=== PATIENT | male | born 1945 | race Caucasian/White ===

== ENCOUNTER 2017-09-13 09:10 | Inpatient (IN) ==
[2017-09-13] MEDS ORDERED: ALBUTEROL/IPRATROPIUM 3 ML NEB RESP TX STA (09:53)
[2017-09-13 10:44] LABS: Basophils % 0.4 % (0.0-0.8); Eosinophils % 0.2 % (0.00-10.9); Hemoglobin 15.6 GM/DL (14.0-18.0); Immature Granulocytes % 0.4 %; Immature Granulocytes Absolute 0.02 #; Lymphocytes # 0.8 10*3/uL (1.4-4.0); Lymphocytes % 15.4 % (21.2-54.2); Mean Corpuscular HGB Conc 32.5 GM/DL (32-36); Mean Corpuscular Hemoglobin 28 PG (27-34); Mean Corpuscular Volume 87.3 FL (87-102); Mean Platelet Volume 8.9 FL (9.6-12.0); Monocytes # 0.5 10*3/uL (0.11-0.8); Monocytes % 8.7 % (1.7-12.7); Neutrophils % 74.9 % (38.7-73.9); Platelet Count 209 T/CUMM (130-400); Red Cell Distribution Width 13.6 % (9.3-17.3); White Blood Count 5.4 T/CUMM (4-12)
[2017-09-13 11:06] LABS: Alanine Aminotransferase 29 U/L (16-61); Albumin 3.7 G/DL (3.4-5.0); Alkaline Phosphatase 128 U/L (45-117); Aspartate Amino Transferase 21 U/L (0-37); Blood Urea Nitrogen 17 MG/DL (7-18); Calcium 9.4 MG/DL (8.5-10.1); Glucose 83 MG/DL (74-106); Magnesium 2.3 MG/DL (1.8-2.4); Osmolality,Calculated 283.1 MOS/KG (273-304); Sodium 142 MMOL/L (136-145); Total Protein 6.8 G/DL (6.4-8.3); Troponin I Only < 0.015 NG/ML (0.00-0.045)
[2017-09-13] MEDS ORDERED: ONDANSETRON 4 MG/2 ML VIAL IV PRN (12:29)
[2017-09-13] MEDS: ALBUTEROL/IPRATROPIUM 3 ML NEB RESP TX SCH ×2 (12:44→19:52)
[2017-09-13] MEDS ORDERED: methylPREDNISolone SOD SUC 125 MG/2 ML VIAL IV ONE (16:10)
[2017-09-13] MEDS ORDERED: BISACODYL 5 MG TABLET PO PRN (17:02)
[2017-09-13] MEDS: CEFEPIME 1,000 MG in SYRINGE 1 EACH IV SCH (18:38)
[2017-09-13] MEDS: DORNASE ALFA 2.5 MG/2.5 ML VIAL RESP TX SCH (19:52)
[2017-09-13] MEDS: DILTIAZEM CD 120 MG CAPSULE PO SCH (22:02)
[2017-09-13] MEDS: ATORVASTATIN 20 MG TABLET PO SCH (22:03)
[2017-09-13] MEDS: ACETAMINOPHEN 325 MG TABLET PO PRN (22:03)
[2017-09-14] MEDS: ALBUTEROL/IPRATROPIUM 3 ML NEB RESP TX SCH ×4 (00:33→20:40)
[2017-09-14] MEDS: CEFEPIME 1,000 MG in SYRINGE 1 EACH IV SCH ×2 (05:47→18:12)
[2017-09-14] MEDS: DORNASE ALFA 2.5 MG/2.5 ML VIAL RESP TX SCH ×2 (07:17→20:52)
[2017-09-14] MEDS ORDERED: predniSONE 20 MG TABLET PO SCH (09:00)
[2017-09-14] MEDS: methylPREDNISolone SOD SUC 125 MG/2 ML VIAL IV SCH ×2 (09:29→20:47)
[2017-09-14] MEDS: LEVOFLOXACIN INJ 500 MG in PREMIX 1 EACH IV SCH (09:29)
[2017-09-14] MEDS: CYANOCOBALAMIN 100 MCG TABLET PO SCH (09:30)
[2017-09-14] MEDS: DILTIAZEM CD 120 MG CAPSULE PO SCH ×2 (09:30→20:47)
[2017-09-14] MEDS: MULTIVITAMIN (CENTRUM) TABLET PO SCH (09:30)
[2017-09-14] MEDS: RIVAROXABAN 20 MG TABLET PO SCH (09:30)
[2017-09-14] MEDS: THEOPHYLLINE ER (24 HR) 300 MG CAPSULE PO SCH (09:30)
[2017-09-14] MEDS: ASCORBIC ACID 500 MG TABLET PO SCH (09:30)
[2017-09-14] MEDS: ASPIRIN EC 81 MG TABLET PO SCH (09:30)
[2017-09-14] MEDS: PANTOPRAZOLE 40 MG TABLET PO SCH (09:30)
[2017-09-14] MEDS: FLUTICASONE/SALMETEROL 250-50 DISKUS 14 DOSE INH SCH (09:58)
[2017-09-14] MEDS: ROFLUMILAST 500 MCG TABLET PO SCH (09:58)
[2017-09-14] MEDS: ACETAMINOPHEN 325 MG TABLET PO PRN (18:13)
[2017-09-14] MEDS: ATORVASTATIN 20 MG TABLET PO SCH (20:48)
[2017-09-15] MEDS: ALBUTEROL/IPRATROPIUM 3 ML NEB RESP TX SCH ×4 (01:59→20:08)
[2017-09-15] MEDS: CEFEPIME 1,000 MG in SYRINGE 1 EACH IV SCH ×2 (05:34→17:03)
[2017-09-15 06:29] LABS: Basophils % 0.2 % (0.0-0.8); Hematocrit 45.8 VOL% (42.0-52.0); Hemoglobin 14.6 GM/DL (14.0-18.0); Immature Granulocytes % 0.5 %; Immature Granulocytes Absolute 0.03 #; Lymphocytes # 0.3 10*3/uL (1.4-4.0); Lymphocytes % 5.2 % (21.2-54.2); Mean Corpuscular HGB Conc 31.9 GM/DL (32-36); Mean Corpuscular Hemoglobin 28 PG (27-34); Mean Corpuscular Volume 88.9 FL (87-102); Monocytes # 0.1 10*3/uL (0.11-0.8); Neutrophils # 5.5 10*3/uL (1.4-7.4); Neutrophils % 93.1 % (38.7-73.9); Platelet Count 240 T/CUMM (130-400); Red Blood Count 5.15 MC/CUMM (3.8-5.5); Red Cell Distribution Width 13.4 % (9.3-17.3); White Blood Count 5.9 T/CUMM (4-12)
[2017-09-15 06:53] LABS: Calcium 8.4 MG/DL (8.5-10.1); Magnesium 2.4 MG/DL (1.8-2.4); Osmolality,Calculated 288.1 MOS/KG (273-304); Potassium 4.1 MMOL/L (3.5-5.1)
[2017-09-15 06:58] LABS: Giant Platelets Few; Hypochromasia 1+; Lymphocytes 5 % (20-55); Platelet Estimate Adequate; Segmented Neutrophils 94 % (50-85); Total Cells Counted 100
[2017-09-15] MEDS: DORNASE ALFA 2.5 MG/2.5 ML VIAL RESP TX SCH ×2 (07:35→20:08)
[2017-09-15] MEDS: methylPREDNISolone SOD SUC 125 MG/2 ML VIAL IV SCH ×2 (09:04→20:29)
[2017-09-15] MEDS: ASPIRIN EC 81 MG TABLET PO SCH (09:05)
[2017-09-15] MEDS: LEVOFLOXACIN INJ 500 MG in PREMIX 1 EACH IV SCH (09:05)
[2017-09-15] MEDS: CYANOCOBALAMIN 100 MCG TABLET PO SCH (09:05)
[2017-09-15] MEDS: DILTIAZEM CD 120 MG CAPSULE PO SCH ×2 (09:05→20:29)
[2017-09-15] MEDS: ROFLUMILAST 500 MCG TABLET PO SCH (09:05)
[2017-09-15] MEDS: THEOPHYLLINE ER (24 HR) 300 MG CAPSULE PO SCH (09:05)
[2017-09-15] MEDS: MULTIVITAMIN (CENTRUM) TABLET PO SCH (09:05)
[2017-09-15] MEDS: FLUTICASONE/SALMETEROL 250-50 DISKUS 14 DOSE INH SCH (09:05)
[2017-09-15] MEDS: ASCORBIC ACID 500 MG TABLET PO SCH (09:05)
[2017-09-15] MEDS: PANTOPRAZOLE 40 MG TABLET PO SCH (09:05)
[2017-09-15] MEDS: RIVAROXABAN 20 MG TABLET PO SCH (09:05)
[2017-09-15] MEDS: ACETAMINOPHEN 325 MG TABLET PO PRN (15:37)
[2017-09-15] MEDS: ATORVASTATIN 20 MG TABLET PO SCH (20:29)
[2017-09-15] MEDS ORDERED: MAGNESIUM SULF RIDER 2 GM in PREMIX 1 EACH IV ONE (21:03)
[2017-09-15] MEDS ORDERED: TERBUTALINE 1 MG/1 ML VIAL SUBCUT ONE (21:25)
[2017-09-15] MEDS ORDERED: methylPREDNISolone SOD SUC 125 MG/2 ML VIAL IV SCH (21:26)
[2017-09-15 21:50] LABS: ABG Base Excess 6.9 MMOL/L (-2.5-2.5); ABG HCO3 30.7 MMOL/L (20-26); ABG Oxygen Saturation 97.6 % (95-100); ABG PH 7.352 (7.35-7.45); ABG TCO2 30.4 MMOL/L (23-27); Allen Test Positive; Pt O2 Delivery Device BIPAP
[2017-09-15 22:22] LABS: Basophils % 0.1 % (0.0-0.8); Hematocrit 46.3 VOL% (42.0-52.0); Immature Granulocytes % 1.4 %; Immature Granulocytes Absolute 0.12 #; Lymphocytes # 0.3 10*3/uL (1.4-4.0); Lymphocytes % 3.5 % (21.2-54.2); Mean Corpuscular HGB Conc 32.4 GM/DL (32-36); Mean Corpuscular Hemoglobin 29 PG (27-34); Mean Platelet Volume 8.9 FL (9.6-12.0); Monocytes # 0.3 10*3/uL (0.11-0.8); Monocytes % 3.6 % (1.7-12.7); Neutrophils % 91.4 % (38.7-73.9); Platelet Count 256 T/CUMM (130-400); Red Blood Count 5.26 MC/CUMM (3.8-5.5); Red Cell Distribution Width 13.5 % (9.3-17.3); White Blood Count 8.8 T/CUMM (4-12)
[2017-09-15 22:42] LABS: Lymphocytes 7 % (20-55); Platelet Estimate Normal; Segmented Neutrophils 93 % (50-85); Total Cells Counted 100
[2017-09-15 22:47] LABS: Calcium 8.7 MG/DL (8.5-10.1); Magnesium 2.4 MG/DL (1.8-2.4); Osmolality,Calculated 289.1 MOS/KG (273-304); Potassium 4.3 MMOL/L (3.5-5.1)
[2017-09-15 22:52] LABS: Troponin I Only < 0.015 NG/ML (0.00-0.045)
[2017-09-16] MEDS: LEVALBUTEROL 1.25 MG/3 ML NEB RESP TX SCH ×4 (00:43→19:27)
[2017-09-16] MEDS: IPRATROPIUM 500 MCG/2.5 ML NEB RESP TX SCH ×4 (00:43→19:26)
[2017-09-16] MEDS: ACETAMINOPHEN 325 MG TABLET PO PRN ×3 (04:52→20:53)
[2017-09-16] MEDS: CEFEPIME 1,000 MG in SYRINGE 1 EACH IV SCH ×2 (05:22→18:39)
[2017-09-16] MEDS ORDERED: MIDAZOLAM 2 MG/2 ML VIAL IV ONE (06:42)
[2017-09-16] MEDS ORDERED: LIDOCAINE 1% 20 ML VIAL MISC INJ ONE (06:42)
[2017-09-16] MEDS ORDERED: LIDOCAINE 2% 20 ML VIAL RESP TX ONE (06:42)
[2017-09-16] MEDS: DORNASE ALFA 2.5 MG/2.5 ML VIAL RESP TX SCH ×2 (07:25→19:16)
[2017-09-16] MEDS: ALBUTEROL 2.5 MG/3 ML NEB RESP TX PRN (07:29)
[2017-09-16] MEDS ORDERED: TERBUTALINE 1 MG/1 ML VIAL SUBCUT ONE (08:01)
[2017-09-16] MEDS: MULTIVITAMIN (CENTRUM) TABLET PO SCH (10:29)
[2017-09-16] MEDS: ASPIRIN EC 81 MG TABLET PO SCH (10:29)
[2017-09-16] MEDS: DILTIAZEM CD 120 MG CAPSULE PO SCH (10:29)
[2017-09-16] MEDS: ROFLUMILAST 500 MCG TABLET PO SCH (10:29)
[2017-09-16] MEDS: PANTOPRAZOLE 40 MG TABLET PO SCH (10:30)
[2017-09-16] MEDS: ASCORBIC ACID 500 MG TABLET PO SCH ×2 (10:30→20:51)
[2017-09-16] MEDS: THEOPHYLLINE ER (24 HR) 300 MG CAPSULE PO SCH (10:30)
[2017-09-16] MEDS: CYANOCOBALAMIN 100 MCG TABLET PO SCH (10:30)
[2017-09-16] MEDS: LEVOFLOXACIN INJ 500 MG in PREMIX 1 EACH IV SCH (10:31)
[2017-09-16] MEDS: FLUTICASONE/SALMETEROL 250-50 DISKUS 14 DOSE INH SCH (10:33)
[2017-09-16] MEDS: RIVAROXABAN 20 MG TABLET PO SCH (10:42)
[2017-09-16] MEDS: methylPREDNISolone SOD SUC 125 MG/2 ML VIAL IV SCH ×3 (10:42→18:38)
[2017-09-16 13:13] LABS: Basophils % 0.1 % (0.0-0.8); Hematocrit 48.5 VOL% (42.0-52.0); Hemoglobin 15.6 GM/DL (14.0-18.0); Immature Granulocytes % 0.6 %; Immature Granulocytes Absolute 0.08 #; Lymphocytes # 0.3 10*3/uL (1.4-4.0); Mean Corpuscular HGB Conc 32.2 GM/DL (32-36); Mean Corpuscular Hemoglobin 28 PG (27-34); Mean Corpuscular Volume 88.3 FL (87-102); Mean Platelet Volume 8.9 FL (9.6-12.0); Monocytes # 0.6 10*3/uL (0.11-0.8); Monocytes % 4.4 % (1.7-12.7); Neutrophils # 12.8 10*3/uL (1.4-7.4); Neutrophils % 92.9 % (38.7-73.9); Platelet Count 266 T/CUMM (130-400); Red Blood Count 5.49 MC/CUMM (3.8-5.5); Red Cell Distribution Width 13.5 % (9.3-17.3); White Blood Count 13.7 T/CUMM (4-12)
[2017-09-16 13:47] LABS: Lymphocytes 2 % (20-55); Platelet Estimate Normal; Segmented Neutrophils 96 % (50-85); Total Cells Counted 100
[2017-09-16] MEDS ORDERED: DILTIAZEM CD 120 MG CAPSULE PO ONE (14:32)
[2017-09-16] MEDS: DILTIAZEM CD 180 MG CAPSULE PO SCH ×2 (15:00→20:52)
[2017-09-16 16:07] LABS: Magnesium 2.6 MG/DL (1.8-2.4); Osmolality,Calculated 288.1 MOS/KG (273-304); Potassium 3.9 MMOL/L (3.5-5.1)
[2017-09-16] MEDS: ATORVASTATIN 20 MG TABLET PO SCH (20:51)
[2017-09-17] MEDS: LEVALBUTEROL 1.25 MG/3 ML NEB RESP TX SCH ×4 (00:42→20:05)
[2017-09-17] MEDS: IPRATROPIUM 500 MCG/2.5 ML NEB RESP TX SCH ×4 (00:42→20:02)
[2017-09-17] MEDS: methylPREDNISolone SOD SUC 125 MG/2 ML VIAL IV SCH ×4 (00:52→19:56)
[2017-09-17] MEDS: ALBUTEROL 2.5 MG/3 ML NEB RESP TX PRN (03:09)
[2017-09-17 04:30] LABS: Basophils % 0.1 % (0.0-0.8); Hematocrit 48.2 VOL% (42.0-52.0); Hemoglobin 15.1 GM/DL (14.0-18.0); Immature Granulocytes % 0.6 %; Immature Granulocytes Absolute 0.08 #; Lymphocytes # 0.3 10*3/uL (1.4-4.0); Lymphocytes % 2.2 % (21.2-54.2); Mean Corpuscular HGB Conc 31.3 GM/DL (32-36); Mean Corpuscular Hemoglobin 28 PG (27-34); Mean Corpuscular Volume 88.9 FL (87-102); Mean Platelet Volume 9.1 FL (9.6-12.0); Monocytes # 0.3 10*3/uL (0.11-0.8); Monocytes % 2.3 % (1.7-12.7); Neutrophils # 11.9 10*3/uL (1.4-7.4); Neutrophils % 94.8 % (38.7-73.9); Platelet Count 261 T/CUMM (130-400); Red Blood Count 5.42 MC/CUMM (3.8-5.5); Red Cell Distribution Width 13.5 % (9.3-17.3); White Blood Count 12.5 T/CUMM (4-12)
[2017-09-17 05:05] LABS: Calcium 8.9 MG/DL (8.5-10.1); Magnesium 2.5 MG/DL (1.8-2.4)
[2017-09-17 05:13] LABS: Segmented Neutrophils 93 % (50-85); Total Cells Counted 100
[2017-09-17 05:14] LABS: Anisocytosis 1+; Band Neutrophils 2 % (0-10); Lymphocytes 2 % (20-55); Macrocytosis 1+; Ovalocytes Few; Platelet Estimate Normal
[2017-09-17] MEDS: CEFEPIME 1,000 MG in SYRINGE 1 EACH IV SCH ×2 (06:29→19:56)
[2017-09-17] MEDS ORDERED: TERBUTALINE 1 MG/1 ML VIAL SUBCUT PRN (07:19)
[2017-09-17 08:32] LABS: ABG Base Excess 11.4 MMOL/L (-2.5-2.5); ABG HCO3 39.3 MMOL/L (20-26); ABG Oxygen Saturation 96.3 % (95-100); ABG PCO2 64.8 MM HG (35-48); ABG PH 7.401 (7.35-7.45); ABG PO2 82.5 MM HG (80-95); ABG TCO2 41.3 MMOL/L (23-27)
[2017-09-17] MEDS: ASCORBIC ACID 500 MG TABLET PO SCH ×2 (09:10→21:04)
[2017-09-17] MEDS: MULTIVITAMIN (CENTRUM) TABLET PO SCH (09:10)
[2017-09-17] MEDS: THEOPHYLLINE ER (24 HR) 300 MG CAPSULE PO SCH (09:10)
[2017-09-17] MEDS: CYANOCOBALAMIN 100 MCG TABLET PO SCH (09:10)
[2017-09-17] MEDS: PANTOPRAZOLE 40 MG TABLET PO SCH (09:11)
[2017-09-17] MEDS: DILTIAZEM CD 180 MG CAPSULE PO SCH ×2 (09:11→21:03)
[2017-09-17] MEDS: ROFLUMILAST 500 MCG TABLET PO SCH (09:11)
[2017-09-17] MEDS: RIVAROXABAN 20 MG TABLET PO SCH (09:11)
[2017-09-17] MEDS: ASPIRIN EC 81 MG TABLET PO SCH (09:11)
[2017-09-17] MEDS: ACETAMINOPHEN 325 MG TABLET PO PRN (13:48)
[2017-09-17] MEDS: LEVOFLOXACIN INJ 500 MG in PREMIX 1 EACH IV SCH (13:49)
[2017-09-17] MEDS: FLUTICASONE/SALMETEROL 250-50 DISKUS 14 DOSE INH SCH (13:50)
[2017-09-17] MEDS ORDERED: DOCUSATE SODIUM 100 MG CAPSULE PO PRN (19:47)
[2017-09-17] MEDS: ATORVASTATIN 20 MG TABLET PO SCH (21:04)
[2017-09-17] MEDS: AZELASTINE NASAL 137 MCG/SPRAY 30 ML BOTTLE BOTH NARES SCH (21:06)
[2017-09-18] MEDS: IPRATROPIUM 500 MCG/2.5 ML NEB RESP TX SCH ×4 (01:35→20:07)
[2017-09-18] MEDS: LEVALBUTEROL 1.25 MG/3 ML NEB RESP TX SCH ×4 (01:35→20:07)
[2017-09-18] MEDS: methylPREDNISolone SOD SUC 125 MG/2 ML VIAL IV SCH ×4 (02:47→19:06)
[2017-09-18] MEDS: ACETAMINOPHEN 325 MG TABLET PO PRN (04:28)
[2017-09-18] MEDS: CEFEPIME 1,000 MG in SYRINGE 1 EACH IV SCH ×2 (07:01→18:34)
[2017-09-18] MEDS: ROFLUMILAST 500 MCG TABLET PO SCH (08:42)
[2017-09-18] MEDS: MULTIVITAMIN (CENTRUM) TABLET PO SCH (08:43)
[2017-09-18] MEDS: PANTOPRAZOLE 40 MG TABLET PO SCH (08:43)
[2017-09-18] MEDS: CYANOCOBALAMIN 100 MCG TABLET PO SCH (08:43)
[2017-09-18] MEDS: RIVAROXABAN 20 MG TABLET PO SCH (08:43)
[2017-09-18] MEDS: ASPIRIN EC 81 MG TABLET PO SCH (08:43)
[2017-09-18] MEDS: ASCORBIC ACID 500 MG TABLET PO SCH ×2 (08:43→21:04)
[2017-09-18] MEDS: THEOPHYLLINE ER (24 HR) 300 MG CAPSULE PO SCH (08:43)
[2017-09-18] MEDS: FLUTICASONE/SALMETEROL 250-50 DISKUS 14 DOSE INH SCH (08:44)
[2017-09-18] MEDS: DILTIAZEM CD 180 MG CAPSULE PO SCH ×2 (08:44→21:04)
[2017-09-18] MEDS: LEVOFLOXACIN INJ 500 MG in PREMIX 1 EACH IV SCH (08:44)
[2017-09-18] MEDS: AZELASTINE NASAL 137 MCG/SPRAY 30 ML BOTTLE BOTH NARES SCH ×2 (08:55→21:04)
[2017-09-18] MEDS: ATORVASTATIN 20 MG TABLET PO SCH (21:04)
[2017-09-19] MEDS: IPRATROPIUM 500 MCG/2.5 ML NEB RESP TX SCH ×4 (00:27→21:15)
[2017-09-19] MEDS: LEVALBUTEROL 1.25 MG/3 ML NEB RESP TX SCH ×4 (00:31→20:32)
[2017-09-19] MEDS: methylPREDNISolone SOD SUC 125 MG/2 ML VIAL IV SCH ×2 (01:12→08:04)
[2017-09-19] MEDS: CEFEPIME 1,000 MG in SYRINGE 1 EACH IV SCH ×2 (05:06→17:42)
[2017-09-19] MEDS: RIVAROXABAN 20 MG TABLET PO SCH (08:04)
[2017-09-19] MEDS: LEVOFLOXACIN INJ 500 MG in PREMIX 1 EACH IV SCH (08:41)
[2017-09-19] MEDS: FLUTICASONE/SALMETEROL 250-50 DISKUS 14 DOSE INH SCH (08:43)
[2017-09-19] MEDS: MULTIVITAMIN (CENTRUM) TABLET PO SCH (08:44)
[2017-09-19] MEDS: AZELASTINE NASAL 137 MCG/SPRAY 30 ML BOTTLE BOTH NARES SCH ×2 (08:44→21:01)
[2017-09-19] MEDS: PANTOPRAZOLE 40 MG TABLET PO SCH (08:45)
[2017-09-19] MEDS: CYANOCOBALAMIN 100 MCG TABLET PO SCH (08:45)
[2017-09-19] MEDS: ASCORBIC ACID 500 MG TABLET PO SCH ×2 (08:45→21:00)
[2017-09-19] MEDS: THEOPHYLLINE ER (24 HR) 300 MG CAPSULE PO SCH (08:45)
[2017-09-19] MEDS: ASPIRIN EC 81 MG TABLET PO SCH (08:45)
[2017-09-19] MEDS: DILTIAZEM CD 180 MG CAPSULE PO SCH ×2 (08:46→21:01)
[2017-09-19] MEDS: ROFLUMILAST 500 MCG TABLET PO SCH (10:06)
[2017-09-19] MEDS: ACETAMINOPHEN 325 MG TABLET PO PRN (10:09)
[2017-09-19] MEDS: methylPREDNISolone SOD SUC 40 MG/1 ML VIAL IV SCH ×3 (10:56→22:40)
[2017-09-19] MEDS: ATORVASTATIN 20 MG TABLET PO SCH (21:01)
[2017-09-20] MEDS: LEVALBUTEROL 1.25 MG/3 ML NEB RESP TX SCH ×4 (00:35→20:00)
[2017-09-20] MEDS: IPRATROPIUM 500 MCG/2.5 ML NEB RESP TX SCH ×4 (00:35→20:00)
[2017-09-20] MEDS: ACETAMINOPHEN 325 MG TABLET PO PRN ×2 (02:09→11:00)
[2017-09-20] MEDS: methylPREDNISolone SOD SUC 40 MG/1 ML VIAL IV SCH ×2 (03:55→16:42)
[2017-09-20] MEDS: CEFEPIME 1,000 MG in SYRINGE 1 EACH IV SCH ×2 (06:32→17:36)
[2017-09-20] MEDS: ROFLUMILAST 500 MCG TABLET PO SCH (08:57)
[2017-09-20] MEDS: MULTIVITAMIN (CENTRUM) TABLET PO SCH (08:57)
[2017-09-20] MEDS: CYANOCOBALAMIN 100 MCG TABLET PO SCH (08:57)
[2017-09-20] MEDS: RIVAROXABAN 20 MG TABLET PO SCH (08:57)
[2017-09-20] MEDS: ASPIRIN EC 81 MG TABLET PO SCH (08:57)
[2017-09-20] MEDS: THEOPHYLLINE ER (24 HR) 300 MG CAPSULE PO SCH (08:57)
[2017-09-20] MEDS: ASCORBIC ACID 500 MG TABLET PO SCH ×2 (08:58→20:20)
[2017-09-20] MEDS: DILTIAZEM CD 180 MG CAPSULE PO SCH ×2 (08:58→20:19)
[2017-09-20] MEDS: PANTOPRAZOLE 40 MG TABLET PO SCH (08:58)
[2017-09-20] MEDS: AZELASTINE NASAL 137 MCG/SPRAY 30 ML BOTTLE BOTH NARES SCH ×2 (08:58→20:17)
[2017-09-20] MEDS: FLUTICASONE/SALMETEROL 250-50 DISKUS 14 DOSE INH SCH (08:59)
[2017-09-20] MEDS: LEVOFLOXACIN INJ 500 MG in PREMIX 1 EACH IV SCH (09:00)
[2017-09-20 10:56] LABS: Basophils % 0.1 % (0.0-0.8); Hemoglobin 15.5 GM/DL (14.0-18.0); Immature Granulocytes Absolute 0.13 #; Lymphocytes # 0.2 10*3/uL (1.4-4.0); Lymphocytes % 1.6 % (21.2-54.2); Mean Corpuscular HGB Conc 31.6 GM/DL (32-36); Mean Corpuscular Hemoglobin 28 PG (27-34); Mean Corpuscular Volume 89.6 FL (87-102); Mean Platelet Volume 9.4 FL (9.6-12.0); Monocytes # 0.7 10*3/uL (0.11-0.8); Neutrophils # 12.1 10*3/uL (1.4-7.4); Neutrophils % 92.3 % (38.7-73.9); Platelet Count 220 T/CUMM (130-400); Red Blood Count 5.47 MC/CUMM (3.8-5.5); Red Cell Distribution Width 13.5 % (9.3-17.3); White Blood Count 13.1 T/CUMM (4-12)
[2017-09-20 11:04] LABS: Calcium 8.6 MG/DL (8.5-10.1); Osmolality,Calculated 298.6 MOS/KG (273-304); Potassium 4.1 MMOL/L (3.5-5.1)
[2017-09-20 11:20] LABS: Band Neutrophils 1 % (0-10); Hypochromasia 1+; Lymphocytes 1 % (20-55); Microcytosis 1+; Segmented Neutrophils 92 % (50-85); Total Cells Counted 100
[2017-09-20 11:22] LABS: Platelet Estimate Normal
[2017-09-20] MEDS: ATORVASTATIN 20 MG TABLET PO SCH (20:20)
[2017-09-21] MEDS: IPRATROPIUM 500 MCG/2.5 ML NEB RESP TX SCH ×5 (00:05→19:15)
[2017-09-21] MEDS: LEVALBUTEROL 1.25 MG/3 ML NEB RESP TX SCH ×4 (00:20→19:15)
[2017-09-21] MEDS: methylPREDNISolone SOD SUC 40 MG/1 ML VIAL IV SCH ×2 (05:13→17:05)
[2017-09-21] MEDS: CEFEPIME 1,000 MG in SYRINGE 1 EACH IV SCH ×2 (05:29→17:08)
[2017-09-21] MEDS: THEOPHYLLINE ER (24 HR) 300 MG CAPSULE PO SCH (09:20)
[2017-09-21] MEDS: DILTIAZEM CD 180 MG CAPSULE PO SCH ×2 (09:20→20:34)
[2017-09-21] MEDS: CYANOCOBALAMIN 100 MCG TABLET PO SCH (09:20)
[2017-09-21] MEDS: ACETAMINOPHEN 325 MG TABLET PO PRN (09:20)
[2017-09-21] MEDS: ROFLUMILAST 500 MCG TABLET PO SCH (09:21)
[2017-09-21] MEDS: MULTIVITAMIN (CENTRUM) TABLET PO SCH (09:21)
[2017-09-21] MEDS: ASCORBIC ACID 500 MG TABLET PO SCH ×2 (09:21→20:38)
[2017-09-21] MEDS: PANTOPRAZOLE 40 MG TABLET PO SCH (09:21)
[2017-09-21] MEDS: LEVOFLOXACIN INJ 500 MG in PREMIX 1 EACH IV SCH (09:21)
[2017-09-21] MEDS: ASPIRIN EC 81 MG TABLET PO SCH (09:21)
[2017-09-21] MEDS: RIVAROXABAN 20 MG TABLET PO SCH (09:21)
[2017-09-21] MEDS: AZELASTINE NASAL 137 MCG/SPRAY 30 ML BOTTLE BOTH NARES SCH ×2 (09:22→20:34)
[2017-09-21] MEDS: FLUTICASONE/SALMETEROL 250-50 DISKUS 14 DOSE INH SCH (09:23)
[2017-09-21] MEDS: ATORVASTATIN 20 MG TABLET PO SCH (20:38)
[2017-09-22] MEDS: LEVALBUTEROL 1.25 MG/3 ML NEB RESP TX SCH ×2 (01:18→07:24)
[2017-09-22] MEDS: methylPREDNISolone SOD SUC 40 MG/1 ML VIAL IV SCH (05:04)
[2017-09-22] MEDS: CEFEPIME 1,000 MG in SYRINGE 1 EACH IV SCH (05:04)
[2017-09-22 06:22] LABS: Basophils % 0.1 % (0.0-0.8); Hemoglobin 15.2 GM/DL (14.0-18.0); Immature Granulocytes % 1.8 %; Immature Granulocytes Absolute 0.26 #; Lymphocytes # 0.3 10*3/uL (1.4-4.0); Lymphocytes % 2.3 % (21.2-54.2); Mean Corpuscular HGB Conc 31.7 GM/DL (32-36); Mean Corpuscular Hemoglobin 28 PG (27-34); Mean Corpuscular Volume 89.1 FL (87-102); Mean Platelet Volume 9.5 FL (9.6-12.0); Monocytes # 0.7 10*3/uL (0.11-0.8); Monocytes % 4.6 % (1.7-12.7); Neutrophils % 91.2 % (38.7-73.9); Platelet Count 210 T/CUMM (130-400); Red Blood Count 5.39 MC/CUMM (3.8-5.5); Red Cell Distribution Width 13.8 % (9.3-17.3); White Blood Count 14.2 T/CUMM (4-12)
[2017-09-22 06:48] LABS: Hypochromasia 2+; Lymphocytes 2 % (20-55); Platelet Estimate Normal; Segmented Neutrophils 94 % (50-85); Total Cells Counted 100
[2017-09-22 06:49] LABS: Microcytosis Slight
[2017-09-22 06:50] LABS: Calcium 8.3 MG/DL (8.5-10.1); Magnesium 2.4 MG/DL (1.8-2.4); Osmolality,Calculated 293.6 MOS/KG (273-304); Potassium 4.6 MMOL/L (3.5-5.1)
[2017-09-22] MEDS: IPRATROPIUM 500 MCG/2.5 ML NEB RESP TX SCH (07:24)
[2017-09-22] MEDS ORDERED: LEVOFLOXACIN 500 MG TABLET PO SCH (09:00)
[2017-09-22] MEDS ORDERED: predniSONE 20 MG TABLET PO SCH (09:00)
[2017-09-22] MEDS: PANTOPRAZOLE 40 MG TABLET PO SCH (10:06)
[2017-09-22] MEDS: RIVAROXABAN 20 MG TABLET PO SCH (10:06)
[2017-09-22] MEDS: MULTIVITAMIN (CENTRUM) TABLET PO SCH (10:08)
[2017-09-22] MEDS: DILTIAZEM CD 180 MG CAPSULE PO SCH (10:08)
[2017-09-22] MEDS: ASCORBIC ACID 500 MG TABLET PO SCH (10:09)
[2017-09-22] MEDS: CYANOCOBALAMIN 100 MCG TABLET PO SCH (10:09)
[2017-09-22] MEDS: ROFLUMILAST 500 MCG TABLET PO SCH (10:10)
[2017-09-22] MEDS: THEOPHYLLINE ER (24 HR) 300 MG CAPSULE PO SCH (10:10)
[2017-09-22] MEDS: ASPIRIN EC 81 MG TABLET PO SCH (10:10)
[2017-09-22] MEDS: AZELASTINE NASAL 137 MCG/SPRAY 30 ML BOTTLE BOTH NARES SCH (10:11)
[2017-09-22 11:07] VITALS: BP 135/75
[2017-09-22] MEDS: FLUTICASONE/SALMETEROL 250-50 DISKUS 14 DOSE INH SCH (14:00)
== END 2017-09-22 14:15 | disposition home or self-care (01) | DRG 166 ==
LOC: EDBD → EDUNIT# → N.ED 09:10 → N.EDINP 09:10 → N.5E 12:08 → N.CVR 09-15 21:09 → N.ICU 09-16 12:45 → N.3E 09-18 10:32
PROVIDERS: ADMIT Family Medicine; ATTEND Family Medicine

== ENCOUNTER 2017-10-27 14:51 | Inpatient (IN) ==
[2017-10-27] MEDS ORDERED: ACETAMINOPHEN 325 MG TABLET PO PRN (16:37)
[2017-10-27] MEDS ORDERED: ONDANSETRON 4 MG/2 ML VIAL IV PRN (16:38)
[2017-10-27] MEDS ORDERED: MAGNESIUM HYDROXIDE SUSP 30 ML UDCUP PO PRN (16:39)
[2017-10-27] MEDS ORDERED: LOPERAMIDE 2 MG CAPSULE PO PRN (16:39)
[2017-10-27] MEDS ORDERED: guaiFENesin 200 MG/10 ML UDCUP PO PRN (16:40)
[2017-10-27] MEDS ORDERED: ALUMINUM/MAGNES/SIMETH MAX STR 30 ML UDCUP PO PRN (16:40)
[2017-10-27] MEDS ORDERED: ALBUTEROL 2.5 MG/3 ML NEB RESP TX PRN (16:44)
[2017-10-27 16:53] LABS: ABG Base Excess 6.2 MMOL/L (-2.5-2.5); ABG HCO3 29.9 MMOL/L (20-26); ABG Oxygen Saturation 92.5 % (95-100); ABG PH 7.416 (7.35-7.45); ABG PO2 63.4 MM HG (80-95); ABG TCO2 27.9 MMOL/L (23-27)
[2017-10-27] MEDS: LEVOFLOXACIN INJ 500 MG in PREMIX 1 EACH IV SCH (17:10)
[2017-10-27] MEDS: CEFEPIME 1,000 MG in SYRINGE 1 EACH IV SCH (17:11)
[2017-10-27] MEDS: SODIUM CHLORIDE 0.9% 1,000 ML IV SCH (17:11)
[2017-10-27 17:16] LABS: Basophils % 0.3 % (0.0-0.8); Eosinophils # 0.1 10*3/uL (0.0-0.87); Eosinophils % 0.7 % (0.00-10.9); Hematocrit 42.1 VOL% (42.0-52.0); Hemoglobin 13.9 GM/DL (14.0-18.0); Immature Granulocytes % 0.9 %; Immature Granulocytes Absolute 0.12 #; Lymphocytes # 0.8 10*3/uL (1.4-4.0); Lymphocytes % 5.9 % (21.2-54.2); Mean Corpuscular Hemoglobin 29 PG (27-34); Mean Corpuscular Volume 87.3 FL (87-102); Mean Platelet Volume 8.8 FL (9.6-12.0); Monocytes % 7.6 % (1.7-12.7); Neutrophils # 11.2 10*3/uL (1.4-7.4); Neutrophils % 84.6 % (38.7-73.9); Platelet Count 312 T/CUMM (130-400); Red Blood Count 4.82 MC/CUMM (3.8-5.5); Red Cell Distribution Width 15.6 % (9.3-17.3); White Blood Count 13.3 T/CUMM (4-12)
[2017-10-27] MEDS: methylPREDNISolone SOD SUC 40 MG/1 ML VIAL IV SCH (17:19)
[2017-10-27 17:44] LABS: Albumin 2.9 G/DL (3.4-5.0); Bilirubin,Total 0.9 MG/DL (0.2-1.0); Calcium 8.7 MG/DL (8.5-10.1); Osmolality,Calculated 278.4 MOS/KG (273-304); Potassium 4.1 MMOL/L (3.5-5.1); Total Protein 6.4 G/DL (6.4-8.3)
[2017-10-27 18:25] LABS: Sedimentation Rate-Westergren 75 MM/HR (0-20)
[2017-10-27] MEDS: ALBUTEROL/IPRATROPIUM 3 ML NEB RESP TX SCH ×2 (19:16→23:45)
[2017-10-27] MEDS: IPRATROPIUM 500 MCG/2.5 ML NEB RESP TX SCH (19:16)
[2017-10-27] MEDS: AZELASTINE NASAL 137 MCG/SPRAY 30 ML BOTTLE BOTH NARES SCH (21:04)
[2017-10-27 21:44] LABS: Apearance,Urine CLEAR (Clear); Bilirubin,Urine Negative (Negative); Blood, Urine Negative (Negative); Glucose,Urine (UA) Negative (Negative); Ketones,Urine 5 mg/dL (Negative); Mucus,Urine Many /LPF (Occasional); Nitrite,Urine Negative (Negative); Protein,Urine 30 MG/DL; RBC,Urine 1 /HPF (0-4); Squamous Epithelial Cell,Urine Occasional /HPF (0-10); Urine Color Amber (Yellow); Urine Specific Gravity 1.027 (1.001-1.035); WBC,Urine 2 /HPF (0-6)
[2017-10-28] MEDS: methylPREDNISolone SOD SUC 40 MG/1 ML VIAL IV SCH ×3 (01:57→17:54)
[2017-10-28] MEDS: CEFEPIME 1,000 MG in SYRINGE 1 EACH IV SCH ×2 (04:47→21:20)
[2017-10-28] MEDS: IPRATROPIUM 500 MCG/2.5 ML NEB RESP TX SCH (06:54)
[2017-10-28] MEDS: ALBUTEROL/IPRATROPIUM 3 ML NEB RESP TX SCH ×3 (06:54→20:29)
[2017-10-28] MEDS: MULTIVITAMIN (CENTRUM) TABLET PO SCH (08:03)
[2017-10-28] MEDS: ASPIRIN CHEW 81 MG TABLET PO SCH (08:03)
[2017-10-28] MEDS: DILTIAZEM CD 120 MG CAPSULE PO SCH (08:03)
[2017-10-28] MEDS: PANTOPRAZOLE 40 MG TABLET PO SCH (08:03)
[2017-10-28] MEDS: CYANOCOBALAMIN 100 MCG TABLET PO SCH (08:03)
[2017-10-28] MEDS: THEOPHYLLINE ER 300 MG TABLET PO SCH (08:03)
[2017-10-28] MEDS: ASCORBIC ACID 500 MG TABLET PO SCH (08:03)
[2017-10-28] MEDS: ATORVASTATIN 20 MG TABLET PO SCH (08:03)
[2017-10-28] MEDS: ROFLUMILAST 500 MCG TABLET PO SCH (08:04)
[2017-10-28] MEDS: FLUTICASONE/SALMETEROL 250-50 DISKUS 14 DOSE INH SCH (08:04)
[2017-10-28] MEDS: AZELASTINE NASAL 137 MCG/SPRAY 30 ML BOTTLE BOTH NARES SCH ×2 (08:04→21:20)
[2017-10-28] MEDS: SODIUM CHLORIDE 0.9% 1,000 ML IV SCH (17:30)
[2017-10-28] MEDS: LEVOFLOXACIN INJ 500 MG in PREMIX 1 EACH IV SCH (21:20)
[2017-10-29] MEDS: ALBUTEROL/IPRATROPIUM 3 ML NEB RESP TX SCH ×4 (01:34→19:24)
[2017-10-29] MEDS: methylPREDNISolone SOD SUC 40 MG/1 ML VIAL IV SCH ×3 (02:05→16:29)
[2017-10-29] MEDS: ASPIRIN CHEW 81 MG TABLET PO SCH (09:26)
[2017-10-29] MEDS: MULTIVITAMIN (CENTRUM) TABLET PO SCH (09:26)
[2017-10-29] MEDS: ROFLUMILAST 500 MCG TABLET PO SCH (09:26)
[2017-10-29] MEDS: ASCORBIC ACID 500 MG TABLET PO SCH (09:26)
[2017-10-29] MEDS: DILTIAZEM CD 120 MG CAPSULE PO SCH (09:26)
[2017-10-29] MEDS: PANTOPRAZOLE 40 MG TABLET PO SCH (09:26)
[2017-10-29] MEDS: ATORVASTATIN 20 MG TABLET PO SCH (09:26)
[2017-10-29] MEDS: CYANOCOBALAMIN 100 MCG TABLET PO SCH (09:26)
[2017-10-29] MEDS: THEOPHYLLINE ER 300 MG TABLET PO SCH (09:27)
[2017-10-29] MEDS: AZELASTINE NASAL 137 MCG/SPRAY 30 ML BOTTLE BOTH NARES SCH ×2 (09:27→22:05)
[2017-10-29] MEDS: FLUTICASONE/SALMETEROL 250-50 DISKUS 14 DOSE INH SCH (09:27)
[2017-10-29] MEDS: CEFEPIME 1,000 MG in SYRINGE 1 EACH IV SCH ×2 (09:27→21:55)
[2017-10-29] MEDS: SODIUM CHLORIDE 0.9% 1,000 ML IV SCH (14:21)
[2017-10-29] MEDS: LEVOFLOXACIN INJ 500 MG in PREMIX 1 EACH IV SCH (22:07)
[2017-10-30] MEDS: ALBUTEROL/IPRATROPIUM 3 ML NEB RESP TX SCH ×4 (01:26→19:21)
[2017-10-30] MEDS: methylPREDNISolone SOD SUC 40 MG/1 ML VIAL IV SCH ×3 (02:00→16:17)
[2017-10-30] MEDS: AZELASTINE NASAL 137 MCG/SPRAY 30 ML BOTTLE BOTH NARES SCH ×2 (08:31→21:48)
[2017-10-30] MEDS: FLUTICASONE/SALMETEROL 250-50 DISKUS 14 DOSE INH SCH (08:31)
[2017-10-30] MEDS: CEFEPIME 1,000 MG in SYRINGE 1 EACH IV SCH ×2 (08:31→21:40)
[2017-10-30] MEDS: MULTIVITAMIN (CENTRUM) TABLET PO SCH (08:32)
[2017-10-30] MEDS: DILTIAZEM CD 120 MG CAPSULE PO SCH (08:32)
[2017-10-30] MEDS: CYANOCOBALAMIN 100 MCG TABLET PO SCH (08:32)
[2017-10-30] MEDS: PANTOPRAZOLE 40 MG TABLET PO SCH (08:32)
[2017-10-30] MEDS: ROFLUMILAST 500 MCG TABLET PO SCH (08:32)
[2017-10-30] MEDS: ATORVASTATIN 20 MG TABLET PO SCH (08:32)
[2017-10-30] MEDS: THEOPHYLLINE ER 300 MG TABLET PO SCH (08:32)
[2017-10-30] MEDS: ASCORBIC ACID 500 MG TABLET PO SCH (08:32)
[2017-10-30] MEDS: ASPIRIN CHEW 81 MG TABLET PO SCH (08:33)
[2017-10-30] MEDS: BISACODYL 5 MG TABLET PO PRN (08:33)
[2017-10-30] MEDS: SODIUM CHLORIDE 0.9% 1,000 ML IV SCH (09:53)
[2017-10-30] MEDS: LEVOFLOXACIN INJ 500 MG in PREMIX 1 EACH IV SCH (21:48)
[2017-10-31] MEDS: ALBUTEROL/IPRATROPIUM 3 ML NEB RESP TX SCH ×5 (00:24→23:51)
[2017-10-31] MEDS: methylPREDNISolone SOD SUC 40 MG/1 ML VIAL IV SCH ×3 (01:19→17:03)
[2017-10-31] MEDS: AZELASTINE NASAL 137 MCG/SPRAY 30 ML BOTTLE BOTH NARES SCH ×2 (08:12→22:27)
[2017-10-31] MEDS: CEFEPIME 1,000 MG in SYRINGE 1 EACH IV SCH ×2 (08:12→21:35)
[2017-10-31] MEDS: FLUTICASONE/SALMETEROL 250-50 DISKUS 14 DOSE INH SCH (08:12)
[2017-10-31] MEDS: ASCORBIC ACID 500 MG TABLET PO SCH (08:13)
[2017-10-31] MEDS: ROFLUMILAST 500 MCG TABLET PO SCH (08:13)
[2017-10-31] MEDS: THEOPHYLLINE ER 300 MG TABLET PO SCH (08:13)
[2017-10-31] MEDS: MULTIVITAMIN (CENTRUM) TABLET PO SCH (08:13)
[2017-10-31] MEDS: DILTIAZEM CD 120 MG CAPSULE PO SCH (08:13)
[2017-10-31] MEDS: ATORVASTATIN 20 MG TABLET PO SCH (08:13)
[2017-10-31] MEDS: CYANOCOBALAMIN 100 MCG TABLET PO SCH (08:13)
[2017-10-31] MEDS: PANTOPRAZOLE 40 MG TABLET PO SCH (08:14)
[2017-10-31] MEDS: ASPIRIN CHEW 81 MG TABLET PO SCH (08:14)
[2017-10-31] MEDS: NYSTATIN 500,000 UNIT/5 ML UDCUP SWISH/SWAL SCH ×2 (17:03→21:40)
[2017-10-31] MEDS: BISACODYL 5 MG TABLET PO PRN (17:10)
[2017-10-31] MEDS: LEVOFLOXACIN INJ 500 MG in PREMIX 1 EACH IV SCH (21:40)
[2017-11-01] MEDS: methylPREDNISolone SOD SUC 40 MG/1 ML VIAL IV SCH ×2 (01:55→09:07)
[2017-11-01] MEDS: ALBUTEROL/IPRATROPIUM 3 ML NEB RESP TX SCH ×2 (07:15→12:58)
[2017-11-01] MEDS: NYSTATIN 500,000 UNIT/5 ML UDCUP SWISH/SWAL SCH ×2 (09:07→14:27)
[2017-11-01] MEDS: PANTOPRAZOLE 40 MG TABLET PO SCH (09:07)
[2017-11-01] MEDS: DILTIAZEM CD 120 MG CAPSULE PO SCH (09:07)
[2017-11-01] MEDS: MULTIVITAMIN (CENTRUM) TABLET PO SCH (09:07)
[2017-11-01] MEDS: CYANOCOBALAMIN 100 MCG TABLET PO SCH (09:08)
[2017-11-01] MEDS: ROFLUMILAST 500 MCG TABLET PO SCH (09:08)
[2017-11-01] MEDS: THEOPHYLLINE ER 300 MG TABLET PO SCH (09:08)
[2017-11-01] MEDS: ASPIRIN CHEW 81 MG TABLET PO SCH (09:09)
[2017-11-01] MEDS: AZELASTINE NASAL 137 MCG/SPRAY 30 ML BOTTLE BOTH NARES SCH (09:09)
[2017-11-01] MEDS: FLUTICASONE/SALMETEROL 250-50 DISKUS 14 DOSE INH SCH (09:09)
[2017-11-01] MEDS: ATORVASTATIN 20 MG TABLET PO SCH (09:09)
[2017-11-01] MEDS: CEFEPIME 1,000 MG in SYRINGE 1 EACH IV SCH (09:47)
[2017-11-01] MEDS: ASCORBIC ACID 500 MG TABLET PO SCH (09:49)
[2017-11-01 19:18] VITALS: BP 140/74
[2017-11-02] MEDS ORDERED: predniSONE 20 MG TABLET PO SCH (09:00)
[2017-11-02] MEDS ORDERED: LEVOFLOXACIN 500 MG TABLET PO SCH (21:00)
== END 2017-11-01 17:45 | disposition home or self-care (01) | DRG 193 ==
LOC: N.2E 15:18
PROVIDERS: ADMIT Internal Medicine Pulmonary Disease; ATTEND Internal Medicine Pulmonary Disease

== ENCOUNTER 2018-09-12 15:05 | Inpatient (IN) ==
[2018-09-12] MEDS ORDERED: ALBUTEROL 2.5 MG/3 ML NEB RESP TX STA (17:03)
[2018-09-12] MEDS ORDERED: SODIUM CHLORIDE 0.9% 1,000 ML IV STA (17:04)
[2018-09-12] MEDS ORDERED: LIDOCAINE 1%/EPI INJ 20 ML VIAL ONE (17:19)
[2018-09-12] MEDS ORDERED: ONDANSETRON 4 MG/2 ML VIAL IV PRN (19:51)
[2018-09-12] MEDS ORDERED: IBUPROFEN 600 MG TABLET PO PRN (19:51)
[2018-09-12 21:34] LABS: Basophils % 0.2 % (0.0-0.8); Eosinophils % 0.1 % (0.00-10.9); Hematocrit 40.5 VOL% (42.0-52.0); Hemoglobin 13.1 GM/DL (14.0-18.0); Immature Granulocytes % 0.4 %; Immature Granulocytes Absolute 0.08 #; Lymphocytes # 0.5 10*3/uL (1.4-4.0); Lymphocytes % 2.9 % (21.2-54.2); Mean Corpuscular HGB Conc 32.3 GM/DL (32-36); Mean Corpuscular Hemoglobin 29 PG (27-34); Mean Platelet Volume 9.1 FL (9.6-12.0); Monocytes # 1.3 10*3/uL (0.11-0.8); Monocytes % 7.5 % (1.7-12.7); Neutrophils # 15.9 10*3/uL (1.4-7.4); Neutrophils % 88.9 % (38.7-73.9); Platelet Count 195 T/CUMM (130-400); Red Cell Distribution Width 13.4 % (9.3-17.3); White Blood Count 17.9 T/CUMM (4-12)
[2018-09-12 21:58] LABS: Calcium 8.5 MG/DL (8.5-10.1); Osmolality,Calculated 278.5 MOS/KG (273-304); Potassium 3.4 MMOL/L (3.5-5.1)
[2018-09-12 22:48] LABS: Lymphocytes 3 % (20-55); Segmented Neutrophils 92 % (50-85); Total Cells Counted 100
[2018-09-12 22:49] LABS: Anisocytosis Slight
[2018-09-12 22:50] LABS: Microcytosis Slight; Ovalocytes Slight; Platelet Estimate Normal
[2018-09-12] MEDS: DOCUSATE SODIUM 100 MG CAPSULE PO SCH (23:29)
[2018-09-12] MEDS: ACETAMINOPHEN 325 MG TABLET PO PRN (23:59)
[2018-09-13] MEDS: ACETAMINOPHEN 325 MG TABLET PO PRN ×2 (08:30→18:48)
[2018-09-13] MEDS ORDERED: PANTOPRAZOLE 40 MG TABLET PO SCH (09:00)
[2018-09-13] MEDS: DOCUSATE SODIUM 100 MG CAPSULE PO SCH ×2 (09:34→21:51)
[2018-09-13] MEDS ORDERED: ALBUTEROL 2.5 MG/3 ML NEB RESP TX PRN (10:10)
[2018-09-13] MEDS: acetaZOLAMIDE 250 MG TABLET PO SCH (13:05)
[2018-09-13] MEDS: BUMETANIDE 1 MG TABLET PO SCH (13:06)
[2018-09-13] MEDS: ROFLUMILAST 500 MCG TABLET PO SCH (13:06)
[2018-09-13] MEDS: DILTIAZEM CD 120 MG CAPSULE PO SCH ×2 (13:06→21:51)
[2018-09-13] MEDS: THEOPHYLLINE ER (24 HR) 300 MG CAPSULE PO SCH (13:08)
[2018-09-13] MEDS: IPRATROPIUM 500 MCG/2.5 ML NEB RESP TX SCH ×2 (16:02→19:46)
[2018-09-13] MEDS: CYANOCOBALAMIN 500 MCG TABLET PO SCH (16:45)
[2018-09-13] MEDS: MULTIVITAMIN (CENTRUM) TABLET PO SCH (16:45)
[2018-09-13] MEDS: ASPIRIN EC 81 MG TABLET PO SCH (16:45)
[2018-09-13] MEDS: PANTOPRAZOLE 40 MG TABLET PO SCH (16:45)
[2018-09-13] MEDS: POTASSIUM CHLORIDE 20 MEQ TABLET PO SCH (16:45)
[2018-09-13] MEDS: ASCORBIC ACID 500 MG TABLET PO SCH (16:46)
[2018-09-13] MEDS: FLUTICASONE/SALMETEROL 250-50 DISKUS 14 DOSE INH SCH ×2 (18:49→21:51)
[2018-09-13] MEDS: ATORVASTATIN 20 MG TABLET PO SCH (21:51)
[2018-09-14] MEDS: LACTATED RINGERS 1,000 ML IV SCH ×2 (00:20→12:48)
[2018-09-14] MEDS: IPRATROPIUM 500 MCG/2.5 ML NEB RESP TX SCH ×4 (07:06→20:59)
[2018-09-14 07:10] LABS: Basophils # 0.1 10*3/uL (0.0-0.2); Basophils % 0.6 % (0.0-0.8); Eosinophils # 0.2 10*3/uL (0.0-0.87); Eosinophils % 2.2 % (0.00-10.9); Hematocrit 40.2 VOL% (42.0-52.0); Hemoglobin 12.7 GM/DL (14.0-18.0); Immature Granulocytes % 0.5 %; Immature Granulocytes Absolute 0.05 #; Lymphocytes # 0.7 10*3/uL (1.4-4.0); Lymphocytes % 7.3 % (21.2-54.2); Mean Corpuscular HGB Conc 31.6 GM/DL (32-36); Mean Corpuscular Hemoglobin 28 PG (27-34); Mean Corpuscular Volume 89.7 FL (87-102); Mean Platelet Volume 9.1 FL (9.6-12.0); Monocytes # 0.8 10*3/uL (0.11-0.8); Neutrophils % 81.4 % (38.7-73.9); Platelet Count 159 T/CUMM (130-400); Red Blood Count 4.48 MC/CUMM (3.8-5.5); Red Cell Distribution Width 13.3 % (9.3-17.3); White Blood Count 9.8 T/CUMM (4-12)
[2018-09-14 07:44] LABS: Calcium 8.2 MG/DL (8.5-10.1); Osmolality,Calculated 283.8 MOS/KG (273-304); Potassium 3.2 MMOL/L (3.5-5.1); Total Protein 6.4 G/DL (6.4-8.3)
[2018-09-14] MEDS ORDERED: POTASSIUM CHLORIDE RIDER 20 MEQ in PREMIX 1 EACH IV PRN (08:47)
[2018-09-14] MEDS ORDERED: POTASSIUM CHLORIDE RIDER 10 MEQ in PREMIX 1 EACH IV ONE (08:51)
[2018-09-14] MEDS: DILTIAZEM CD 120 MG CAPSULE PO SCH ×2 (09:09→20:53)
[2018-09-14] MEDS: ACETAMINOPHEN 325 MG TABLET PO PRN (09:34)
[2018-09-14] MEDS: FLUTICASONE/SALMETEROL 250-50 DISKUS 14 DOSE INH SCH ×2 (10:20→20:53)
[2018-09-14] MEDS: ASPIRIN EC 81 MG TABLET PO SCH (10:20)
[2018-09-14] MEDS: POTASSIUM CHLORIDE 20 MEQ TABLET PO SCH (10:21)
[2018-09-14] MEDS: PANTOPRAZOLE 40 MG TABLET PO SCH (10:21)
[2018-09-14] MEDS: DOCUSATE SODIUM 100 MG CAPSULE PO SCH ×2 (10:21→20:48)
[2018-09-14] MEDS: acetaZOLAMIDE 250 MG TABLET PO SCH (10:21)
[2018-09-14] MEDS: BUMETANIDE 1 MG TABLET PO SCH (10:21)
[2018-09-14] MEDS: ROFLUMILAST 500 MCG TABLET PO SCH (10:21)
[2018-09-14] MEDS: MULTIVITAMIN (CENTRUM) TABLET PO SCH (10:21)
[2018-09-14] MEDS: THEOPHYLLINE ER (24 HR) 300 MG CAPSULE PO SCH (10:22)
[2018-09-14] MEDS: CYANOCOBALAMIN 500 MCG TABLET PO SCH (10:22)
[2018-09-14] MEDS: ASCORBIC ACID 500 MG TABLET PO SCH (10:22)
[2018-09-14] MEDS ORDERED: MAGNESIUM HYDROXIDE SUSP 30 ML UDCUP PO PRN (12:20)
[2018-09-14] MEDS ORDERED: diphenhydrAMINE CAP 25 MG CAPSULE PO PRN (12:20)
[2018-09-14] MEDS ORDERED: MORPHINE 4 MG/1 ML VIAL IV PRN ×2 (12:20)
[2018-09-14] MEDS ORDERED: oxyCODONE IR 5 MG TABLET PO PRN ×2 (12:20)
[2018-09-14] MEDS ORDERED: ceFAZolin 1,000 MG VIAL ONE (12:59)
[2018-09-14] MEDS ORDERED: POTASSIUM CHLORIDE INJ 40 MEQ in LACTATED RINGERS 1,000 ML IV SCH (13:00)
[2018-09-14] MEDS ORDERED: BACITRACIN OINT 0.9 GM PACK TOP ONE (13:12)
[2018-09-14] MEDS ORDERED: BUPIVACAINE SPINAL 0.75% 2 ML AMP SPINAL ONE (13:48)
[2018-09-14] MEDS ORDERED: LACTATED RINGERS 1,000 ML IV ONE (13:48)
[2018-09-14] MEDS ORDERED: PROPOFOL 200 MG/20 ML VIAL IV ONE (13:48)
[2018-09-14] MEDS ORDERED: KETOROLAC 15 MG/1 ML VIAL ONE (13:55)
[2018-09-14] MEDS: KETOROLAC 15 MG/1 ML VIAL IV SCH ×2 (13:59→19:06)
[2018-09-14 17:11] LABS: Basophils # 0.1 10*3/uL (0.0-0.2); Basophils % 0.5 % (0.0-0.8); Eosinophils # 0.3 10*3/uL (0.0-0.87); Eosinophils % 2.8 % (0.00-10.9); Hematocrit 38.9 VOL% (42.0-52.0); Hemoglobin 12.1 GM/DL (14.0-18.0); Immature Granulocytes % 0.3 %; Immature Granulocytes Absolute 0.03 #; Lymphocytes # 0.9 10*3/uL (1.4-4.0); Mean Corpuscular HGB Conc 31.1 GM/DL (32-36); Mean Corpuscular Hemoglobin 29 PG (27-34); Mean Corpuscular Volume 91.5 FL (87-102); Mean Platelet Volume 9.7 FL (9.6-12.0); Monocytes # 0.9 10*3/uL (0.11-0.8); Monocytes % 9.3 % (1.7-12.7); Neutrophils # 7.5 10*3/uL (1.4-7.4); Neutrophils % 78.1 % (38.7-73.9); Platelet Count 151 T/CUMM (130-400); Red Blood Count 4.25 MC/CUMM (3.8-5.5); Red Cell Distribution Width 13.4 % (9.3-17.3); White Blood Count 9.6 T/CUMM (4-12)
[2018-09-14 17:14] LABS: ABG Base Excess 6.9 MMOL/L (-2.5-2.5); ABG Oxygen Saturation 64.3 % (95-100); ABG PH 7.356 (7.35-7.45); ABG TCO2 31.2 MMOL/L (23-27)
[2018-09-14 17:18] LABS: ABG PO2 32.8 MM HG (80-95)
[2018-09-14] MEDS: ceFAZolin 1,000 MG in SYRINGE 1 EACH IV SCH (17:21)
[2018-09-14 17:31] LABS: Calcium 8.4 MG/DL (8.5-10.1); Osmolality,Calculated 289.7 MOS/KG (273-304); Potassium 4.3 MMOL/L (3.5-5.1)
[2018-09-14] MEDS: ACETAMINOPHEN 500 MG TABLET PO SCH (17:32)
[2018-09-14 17:43] LABS: ABG Base Excess 6.7 MMOL/L (-2.5-2.5); ABG HCO3 30.5 MMOL/L (20-26); ABG Oxygen Saturation 96.4 % (95-100); ABG PCO2 59.5 MM HG (35-48); ABG PH 7.366 (7.35-7.45); ABG PO2 84.3 MM HG (80-95); ABG TCO2 30.3 MMOL/L (23-27); Allen Test Positive; Pt O2 Delivery Device Simple Mask
[2018-09-14] MEDS ORDERED: methylPREDNISolone SOD SUC 40 MG/1 ML VIAL IV SCH (18:00)
[2018-09-14] MEDS: methylPREDNISolone SOD SUC 40 MG/1 ML VIAL IV SCH (18:18)
[2018-09-14] MEDS: ATORVASTATIN 20 MG TABLET PO SCH (20:48)
[2018-09-15] MEDS: ACETAMINOPHEN 500 MG TABLET PO SCH ×3 (00:40→10:40)
[2018-09-15] MEDS: ceFAZolin 1,000 MG in SYRINGE 1 EACH IV SCH (00:40)
[2018-09-15] MEDS: KETOROLAC 15 MG/1 ML VIAL IV SCH ×2 (00:41→06:44)
[2018-09-15 05:03] LABS: Basophils % 0.1 % (0.0-0.8); Eosinophils % 0.1 % (0.00-10.9); Hematocrit 40.7 VOL% (42.0-52.0); Hemoglobin 12.5 GM/DL (14.0-18.0); Immature Granulocytes % 0.3 %; Immature Granulocytes Absolute 0.02 #; Lymphocytes # 0.3 10*3/uL (1.4-4.0); Lymphocytes % 3.8 % (21.2-54.2); Mean Corpuscular HGB Conc 30.7 GM/DL (32-36); Mean Corpuscular Hemoglobin 28 PG (27-34); Mean Corpuscular Volume 91.1 FL (87-102); Mean Platelet Volume 9.6 FL (9.6-12.0); Monocytes # 0.2 10*3/uL (0.11-0.8); Monocytes % 3.1 % (1.7-12.7); Neutrophils # 6.3 10*3/uL (1.4-7.4); Neutrophils % 92.6 % (38.7-73.9); Platelet Count 151 T/CUMM (130-400); Red Blood Count 4.47 MC/CUMM (3.8-5.5); Red Cell Distribution Width 13.4 % (9.3-17.3); White Blood Count 6.8 T/CUMM (4-12)
[2018-09-15 05:25] LABS: Calcium 8.9 MG/DL (8.5-10.1); Osmolality,Calculated 286.8 MOS/KG (273-304); Potassium 4.9 MMOL/L (3.5-5.1)
[2018-09-15 05:41] LABS: Band Neutrophils 1 % (0-10); Eosinophils 1 % (0-10); Hypochromasia 1+; Lymphocytes 5 % (20-55); Platelet Estimate Adequate; Segmented Neutrophils 88 % (50-85); Total Cells Counted 100
[2018-09-15] MEDS: methylPREDNISolone SOD SUC 40 MG/1 ML VIAL IV SCH ×2 (06:36→17:14)
[2018-09-15] MEDS: FONDAPARINUX 2.5 MG/0.5 ML SYRINGE SUBCUT SCH (06:39)
[2018-09-15] MEDS: IPRATROPIUM 500 MCG/2.5 ML NEB RESP TX SCH ×4 (07:20→18:40)
[2018-09-15 09:42] LABS: Albumin (SPE) Rel % 62.9 %; Alpha 1 (SPE) 0.3 G/DL (0.1-0.4); Alpha 1 (SPE) Rel % 4.9 %; Alpha 2 (SPE) 0.8 G/DL (0.4-1.0); Alpha 2 (SPE) Rel % 12.2 %; Beta (SPE) 0.7 G/DL (0.5-1.1); Gamma (SPE) 0.6 G/DL (0.7-1.7); Total Protein (Chem) 6.4 G/DL (6.4-8.3)
[2018-09-15] MEDS: CYANOCOBALAMIN 500 MCG TABLET PO SCH (09:42)
[2018-09-15] MEDS: ROFLUMILAST 500 MCG TABLET PO SCH (09:42)
[2018-09-15] MEDS: ASPIRIN EC 81 MG TABLET PO SCH (09:43)
[2018-09-15] MEDS: DILTIAZEM CD 120 MG CAPSULE PO SCH ×2 (09:43→20:03)
[2018-09-15] MEDS: THEOPHYLLINE ER (24 HR) 300 MG CAPSULE PO SCH (09:43)
[2018-09-15] MEDS: acetaZOLAMIDE 250 MG TABLET PO SCH (09:43)
[2018-09-15] MEDS: PANTOPRAZOLE 40 MG TABLET PO SCH (09:43)
[2018-09-15] MEDS: MULTIVITAMIN (CENTRUM) TABLET PO SCH (09:44)
[2018-09-15] MEDS: POTASSIUM CHLORIDE 20 MEQ TABLET PO SCH (09:44)
[2018-09-15] MEDS: DOCUSATE SODIUM 100 MG CAPSULE PO SCH ×2 (09:44→20:03)
[2018-09-15] MEDS: BUMETANIDE 1 MG TABLET PO SCH (09:44)
[2018-09-15] MEDS: ASCORBIC ACID 500 MG TABLET PO SCH (09:44)
[2018-09-15] MEDS: FLUTICASONE/SALMETEROL 250-50 DISKUS 14 DOSE INH SCH ×2 (09:44→20:03)
[2018-09-15] MEDS: ATORVASTATIN 20 MG TABLET PO SCH (20:06)
[2018-09-16] MEDS: methylPREDNISolone SOD SUC 40 MG/1 ML VIAL IV SCH (06:05)
[2018-09-16] MEDS: FONDAPARINUX 2.5 MG/0.5 ML SYRINGE SUBCUT SCH (06:06)
[2018-09-16] MEDS: IPRATROPIUM 500 MCG/2.5 ML NEB RESP TX SCH ×2 (07:26→11:44)
[2018-09-16] MEDS ORDERED: B12 5000 MCG PO SCH (09:00)
[2018-09-16 12:07] VITALS: BP 128/59
[2018-09-16] MEDS: acetaZOLAMIDE 250 MG TABLET PO SCH (13:28)
[2018-09-16] MEDS: PANTOPRAZOLE 40 MG TABLET PO SCH (13:28)
[2018-09-16] MEDS: MULTIVITAMIN (CENTRUM) TABLET PO SCH (13:30)
[2018-09-16] MEDS: BUMETANIDE 1 MG TABLET PO SCH (13:30)
[2018-09-16] MEDS: ASCORBIC ACID 500 MG TABLET PO SCH (13:31)
[2018-09-16] MEDS: DILTIAZEM CD 120 MG CAPSULE PO SCH (13:31)
[2018-09-16] MEDS: THEOPHYLLINE ER (24 HR) 300 MG CAPSULE PO SCH (13:32)
[2018-09-16] MEDS: DOCUSATE SODIUM 100 MG CAPSULE PO SCH (13:32)
[2018-09-16] MEDS: POTASSIUM CHLORIDE 20 MEQ TABLET PO SCH (13:33)
[2018-09-16] MEDS: ASPIRIN EC 81 MG TABLET PO SCH (13:33)
[2018-09-16] MEDS: FLUTICASONE/SALMETEROL 250-50 DISKUS 14 DOSE INH SCH (13:34)
[2018-09-16] MEDS: ROFLUMILAST 500 MCG TABLET PO SCH (13:37)
== END 2018-09-16 14:20 | disposition home health service (06) | DRG 481 ==
LOC: N.ED 15:05 → N.3E 19:51
PROVIDERS: ADMIT Family Medicine; ATTEND Family Medicine